=== PATIENT | male | born 1950 | race Caucasian/White ===

== ENCOUNTER 2021-06-07 18:36 | Emergency (ER) | payer OTHER ==
[~2021-06-07] VITALS: Ht 175.3 cm; Wt 99.8 kg
[2021-06-07] MEDS ORDERED: METFORMIN HCL500 M3 PO (18:47)
[2021-06-07] MEDS ORDERED: VALSARTAN320 MG PO (18:47)
[2021-06-07] MEDS ORDERED: OMEPRAZOLE40 MG PO (18:47)
[2021-06-07] MEDS ORDERED: LIPITOR 20 MG T20 M1 PO (18:47)
[2021-06-07] MEDS ORDERED: AMLODIPINE BESY10 MG PO (18:47)
[2021-06-07] MEDS ORDERED: HYDROCHLOROTHIA25 M1 PO (18:47)
[2021-06-07] MEDS ORDERED: VITAMIN D21250 MCG PO (18:48)
[2021-06-07] MEDS ORDERED: ACTOS 45 MG45 M1 PO (18:48)
[2021-06-07] MEDS ORDERED: LEXAPRO 10 MG T10 M1 PO (18:48)
[2021-06-07] MEDS ORDERED: WELLBUTRIN 75 M75 M1 PO (18:48)
[2021-06-07] MEDS ORDERED: NOVOLIN 70100 UNIT/1 SUBQ (18:49)
[2021-06-07] MEDS ORDERED: OZEMPIC0.25 MG/0. SUBQ (18:49)
[2021-06-07] MEDS ORDERED: LAMICTAL 25 MG25 MG PO (18:49)
[2021-06-07 21:50] VITALS: BP 153/80
== END 2021-06-07 21:50 | disposition home or self-care (01) ==
LOC: M.ERS 18:36
DX: U07.1 COVID-19 (principal); E11.9 Type 2 diabetes mellitus without complications; I10 Essential (primary) hypertension; E78.00 Pure hypercholesterolemia, unspecified; E66.9 Obesity, unspecified; Z68.32 Body mass index [BMI] 32.0-32.9, adult; Z96.652 Presence of left artificial knee joint; Z79.899 Other long term (current) drug therapy; Z79.4 Long term (current) use of insulin